=== PATIENT | male | born 1980 | race Caucasian/White ===

== ENCOUNTER 2025-02-06 17:16 | Emergency (ER) | payer SELFPAY ==
[2025-02-06] MEDS ORDERED: Sodium Chloride 0.9% 10 ML Syringe FLUSH PRN (17:19)
[2025-02-06] MEDS ORDERED: Sodium Chloride 0.9% 2.5 ML Syringe FLUSH PRN (17:19)
[2025-02-06] MEDS: Ondansetron 4 MG/2 ML SDV IVPUSH ONE (17:50)
[2025-02-06] MEDS: Ketorolac 30 MG/ML SDV IVPUSH ONE (17:50)
[2025-02-06 17:58] LABS: BASOPHILS ABSOLUTE AUTO 0.05 K/uL (0.00-0.20); BASOPHILS PERCENT AUTO 0.4 % (0.0-1.0); EOSINOPHILS ABSOLUTE AUTO 0.03 K/uL (0.00-0.45); EOSINOPHILS PERCENT AUTO 0.2 % (0.0-6.0); IMMATURE GRAN ABSOLUTE AUTO 0.03 K/uL (0.00-0.05); IMMATURE GRAN PERCENT AUTO 0.2 % (0.0-0.4); LYMPHOCYTES ABSOLUTE AUTO 1.50 K/uL (1.00-4.80); LYMPHOCYTES PERCENT AUTO 10.7 % (24.0-44.0); MEAN PLATELET VOLUME 10.6 fL (9.4-12.4); MONOCYTES ABSOLUTE AUTO 0.38 K/uL (0.00-0.80); MONOCYTES PERCENT AUTO 2.7 % (0.0-8.0); NEUTROPHILS ABSOLUTE AUTO 12.07 K/uL (1.80-7.70); NEUTROPHILS PERCENT AUTO 85.8 % (41.0-71.0); NRBC ABSOLUTE 0.00 K/uL (0.00-0.02); NRBC PERCENT 0.0 /100WBC (0.0-0.2); PLATELET COUNT,PLT 254 K/uL (150-400); RED BLOOD CELL COUNT 5.38 M/uL (4.52-5.90); WHITE BLOOD CELL COUNT,WBC 14.06 K/uL (3.9-11.3)
[2025-02-06] MEDS: Iopamidol 755 MG/ML 500 ML Multipack Bottle IVPUSH STA (17:59)
[2025-02-06 18:21] LABS: A/G RATIO 1.1 (0.9-1.6); ALANINE AMINOTRANSFERASE,ALT 35.0 IU/L (14-63); ASPARTATE AMNIOTRANSFERASE,AST 17.0 IU/L (15-37); BILIRUBIN TOTAL 0.5 mg/dL (0.2-1.0); BLOOD UREA NITROGEN,BUN 9.0 mg/dL (7.0-18.0); CARBON DIOXIDE,CO2 26.8 mmol/L (21.0-32.0); CHLORIDE,CL 105.0 mmol/L (98-107); CREATININE 1.0 mg/dL (0.8-1.3); EST CRCL DRUG DOSING (CG) 101.45 mL/min; GLUCOSE RANDOM 115.0 mg/dL (74-106); POTASSIUM,K 3.4 mmol/L (3.5-5.1); PROTEIN TOTAL,TP 8.0 g/dL (6.4-8.2); SODIUM,NA 141.0 mmol/L (136-148)
[2025-02-06 18:29] LABS: ESTIMATED GFR 96.0 mL/min (>60)
[2025-02-06 19:36] LABS: GLUCOSE,URINE NEGATIVE (NEGATIVE); OCCULT BLOOD,URINE MODERATE (NEGATIVE)
[2025-02-06 19:40] LABS: APPEARANCE,URINE HAZY
[2025-02-06 19:45] LABS: EPITHELIAL CELLS,URINE NOT SEEN (NONE-FEW)
== END 2025-02-06 19:42 | disposition home or self-care (01) ==
LOC: MW.ED 17:16
DX: K80.20 Calculus of gallbladder without cholecystitis without obstruction (principal); Z79.899 Other long term (current) drug therapy
CPT/HCPCS: 36415; 74177; 76705; 80053; 81001; 83690; 83735; 85025; 96361; 96374; 96375; 99284; J1885; J2405; J7030; Q9967